=== PATIENT | female | born 1990 | race Hispanic/Latino ===

== ENCOUNTER 2025-05-30 11:23 | Emergency (ER) | payer OTHER, SELFPAY ==
--- NOTE | ~2025-05-30 | US_ITS ---
EXAMINATION: US pelvic complete w TV DATE: 05/30/2025 15:06 INDICATION: Bilateral hydrosalpinx on CT. Hematuria and dysuria. TECHNIQUE: Multiple transabdominal and endovaginal sonographic images of the pelvis were obtained. COMPARISON: None. FINDINGS: The anteverted uterus measures 10.4 x 5.3 x 6.0 cm. There several anechoic nabothian cysts measuring up to 9 mm at the cervix. The endometrial complex measures 15 mm in thickness. There is subtle heterogeneously echogenicity to the myometrium at the uterine fundus with striated pattern of suspicious for diffuse adenomyosis. The right ovary measures 3.3 x 3.2 x 2.3 cm. 2.2 cm anechoic right ovarian cyst/follicle. The left ovary measures 2.8 x 2.5 x 1.8 cm. There are a few additional smaller anechoic cysts/follicles measuring up to 1.2 cm in the left ovary. There is dilation of the bilateral fallopian tubes with internal longitudinal mucosal folds with fallopian tubes measuring up to 1.5 cm diameter on the left and 1.2 cm on the right. There is normal vascular flow in the ovaries. There is no free fluid in the pelvis. IMPRESSION: 1. Bilateral hydrosalpinges. 2. Heterogeneous echogenicity with striate pattern of the uterine myometrium suspicious for diffuse adenomyosis. Reviewed, dictated and finalized at location A. CIATE PROFESSOR OF CHEMISTRY IMPRESSION: 1. Bilateral hydrosalpinges. 2. Heterogeneous echogenicity with striate pattern of the uterine myometrium sibley spicious for diffuse adenomyosis.
--- NOTE | ~2025-05-30 | CT_ITS ---
CT abdomen pelvis w con Clinical History: r flank pain, poss stone vs pyelo . Comparison: None Technique: Axial images lung bases to symphysis pubis IV contrast information not listed in PACS Coronal, sagittal reformats CT images acquired with automatic exposure control for dose reduction DLP: 238 mGy-cm Findings: Lung bases: Clear. Visualized heart and pericardium: Unremarkable. Liver: Unremarkable. Gallbladder: Unremarkable. Spleen: Unremarkable. Pancreas: Unremarkable. Adrenal glands: Unremarkable. Kidneys: Right kidney- No hydronephrosis. No renal stones. A few small cysts Left kidney- No hydronephrosis. No renal stones. Distal esophagus/stomach: Unremarkable. Small bowel loops: Normal caliber and wall thickness. Colon: Normal caliber and wall thickness. Appendectomy. Nodes: No enlarged nodes. Peritoneum: No ascites. No free air. Urinary bladder: Unremarkable. Uterus: Fluid within canal presumably perimenses. Adnexa: No masses. Bilateral tubular cystic focus. Bones: No acute bony abnormality. Soft tissues: Unremarkable. Aorta: No aneurysm or dissection. IVC: Unremarkable. Main portal vein/SMV/splenic vein: Patent. IMPRESSION: 1. Bilateral hydrosalpinx. Recommend transvaginal pelvic ultrasound. 2. Otherwise no acute abnormality. Reviewed, dictated and finalized at location R. ER PARENT
[2025-05-30 11:33] VITALS: BP 108/63; PULSE 73; RESP 20; TEMP 36.4; O2SAT 100
[2025-05-30 12:00] LABS: BEDSIDEPREGUCG Negative (Negative)
[2025-05-30 12:15] LABS: Add Urine Microscopic? YES; Appearance Urine Cloudy (Clear); Glucose Urine UA Negative (Negative); Leukocyte Esterase Ur 1+ LEU/UL (Negative); Nitrate Urine Negative (Negative); Non Pathogenic Casts 0-2; Specific Grav Ur 1.004 (1.001-1.035)
--- NOTE | 2025-05-30 12:21 | ED_ITS ---
HPI - Female Genitourinary General Chief complaint: Urogenital-Female Stated complaint: lower abdominal pain. blood in urine Time Seen by Provider: 05/30/25 12:03 Source: patient and associate store manager Mode of arrival: ambulatory Limitations: language barrier History of Present Illness HPI Narrative: This is a 34-year-old female with no significant past medical history presents the ED for dysuria, hematuria. Patient states that since this morning she has been having symptoms. She states that this did happen once before about 4 years ago and she was diagnosed with a kidney infection. Denies fevers, chills. She has had increased urination. Reports pain to her right flank. No prior history of kidney stones. She is not on any medications at this time. Last normal menstrual period was 05/23/2025. Related Data Allergies Allergy/AdvReac Type Severity Reaction Status Date / Time No Known Allergies Allergy Verified 05/30/25 11:37 Review of Systems 2 Review of Systems: Gen.: Denies fevers or chills Eyes: Denies eye pain or visual change ENT: Denies congestion Respiratory: Denies shortness of breath or cough CV: Denies chest pain or palpitations GI: Denies abdominal pain nausea, emesis or diarrhea as per HPI Musculoskeletal: Denies back pain or muscle pain Neuro: Denies numbness, tingling, weakness or focal weakness Skin: Denies rash Except as documented, all other systems reviewed and negative Exam 2 Narrative: APPEARANCE: No acute distress, nontoxic, resting in bed EYES: EOMI HEENT: Normocephalic, atraumatic, OMM RESPIRATORY: No respiratory distress Clear to auscultation bilaterally with no rhonchi wheezing or rales. CARDIOVASCULAR: Regular rate and rhythm without murmurs rubs or gallops. ABDOMINAL: Soft, nontender, nondistended, no rebound or guarding MUSCULOSKELETAl: Moves all extremities. No clubbing, cyanosis or edema. NEURO: Awake and alert. Following commands, speech normal, no focal deficits SKIN:: Warm, dry. No rashes lesions or abrasions PSYCHIATRIC: Normal affect/mood, Course Vital Signs Vital signs: Vital Signs Temperature 97.5 F L 05/30/25 11:33 Pulse Rate 73 05/30/25 11:33 Respiratory Rate 20 05/30/25 11:33 Blood Pressure 108/63 05/30/25 11:33 Pulse Oximetry 100 05/30/25 11:33 Oxygen Delivery Room Air 05/30/25 11:33 Temperature 97.5 F L 05/30/25 11:33 Pulse Rate 75 05/30/25 15:56 Respiratory Rate 14 05/30/25 15:56 Blood Pressure 131/76 05/30/25 15:56 Pulse Oximetry 100 05/30/25 15:56 Oxygen Delivery Room Air 05/30/25 11:33 MDM - Female Genitourinary MDM Narrative Medical decision making narrative: 34-year-old female Presenting for flank pain and hematuria. On initial evaluation patient was in no acute distress afebrile, hemodynamic stable. Differentials include but are not limited to: Ovarian torsion, ovarian cyst, ectopic , Appendicitis, constipation, IBD, IBS, ureterolithiasis, enterocolitis, colitis, hernia Notable exam findings: Right CVA tenderness, mild suprapubic tenderness to palpation. Notable lab findings: CBC and CMP without significant abnormalities. UA showed blood and leukocyte esterase but no bacteria. HCG negative. Notable imaging findings: CT abdomen/pelvis showed bilateral hydrosalpinx, recommended transvaginal ultrasound. Transvaginal ultrasound was obtained which showed hydrosalpinx with evidence of adenomyosis. This is likely the source of the patient's symptoms at this time. She does not have a junior paralegal to follow up with. She was given a referral to Dr. Ji, to follow-up for further evaluation and management. They were educated on Tylenol and ibuprofen use. Patient and family were agreeable to this plan. Given strict return precautions. Medical Records Attestation: I reviewed the patient's medical records. Lab Data Attestation: I reviewed the patient's lab results. 05/30/25 12:42 05/30/25 12:42 Labs: Lab Results 05/30/25 05/30/25 05/30/25 Range/Units 11:51 11:58 12:42 WBC 9.1 (4.5-10.0) K/mm3 RBC 3.89 L (4.2-5.4) M/mm3 Hgb 11.6 L (12.0-15.0) g/dL Hct 35.4 L (37.0-47.0) % MCV 91.0 (80-100) fl MCH 29.8 (26-34) pg MCHC 32.8 (32-36) g/dl RDW 13.3 (11.5-14.5) % Plt Count 288 (150-375) k/mm3 MPV 9.7 (7.4-10.4) fl Immature Gran % (Auto) 0.2 (0-0.5) % Neut % (Auto) 71.5 (45.5-73.1) % Lymph % (Auto) 21.4 (18.3-44.2) % [place] % (Auto) 6.3 (2.6-8.5) % Eos % (Auto) 0.4 (0-4.4) % Baso % (Auto) 0.2 (0.2-1.2) % Lymph # (Auto) 1.96 (0.9-3.2) K/mm3 [place] # (Auto) 0.6 (0.1-0.6) K/mm3 Eos # (Auto) 0.0 (0-0.3) K/mm3 Baso # (Auto) 0.0 (0.0-0.1) K/mm3 Abs Immat Gran (auto) 0.02 (0.00-0.031) K/mm3 Absolute Neuts (auto) 6.5 (1.3-6.7) K/mm3 Absolute Nucleated RBC 0.000 (0.0-0.012) K/mm3 Nucleated RBC % 0.0 (0.0-0.2) % Sodium 138 (137-145) mmol/L Potassium 3.5 (3.4-5.0) mmol/L Chloride 103 (98-107) mmol/L Carbon Dioxide 27 (22-30) mmol/L Anion Gap 8 (4-12) mmol/L BUN 8 (7-17) mg/dL Creatinine 0.52 L (0.7-1.0) mg/dL Estim Creat Clear Calc 91 ml/min Estimated GFR > 60 (59 - ) Glucose 110 (65-110) mg/dL Calcium 8.7 (8.4-10.2) mg/dL Total Bilirubin 0.7 (0.2-1.3) mg/dL AST 19 (14-36) U/L ALT 11 (6-35) U/L Alkaline Phosphatase 62 (38-126) U/L Total Protein 7.2 (6.3-8.2) g/dL Albumin 4.2 (3.5-5.1) g/dL Urine Color Yellow (Yellow) Urine Appearance Cloudy H (Clear) Urine pH 6.0 (5.0-9.0) Ur Specific [place] 1.004 (1.001-1.035) Urine Protein Negative (Negative) mg/dL Urine Glucose (UA) Negative (Negative) mg/dL Urine Ketones Negative (Negative) mg/dL Ur Blood (Man) 2+ H (Negative) Urine Nitrate Negative (Negative) Urine Bilirubin Negative (Negative) Urine Urobilinogen 0.2 (<2.0) mg/dL Leukocyte Esterase Rfl 1+ H (Negative) NORA/UL Urine RBC 0-2 (0-2) /hpf Urine WBC 11-20 H (0-3) /hpf Ur Squamous Epith Cells Occasional (Few) /hpf Urine Bacteria None seen /hpf Urine Casts 0-2 POC Urine HCG, Qual Negative (Negative) Imaging Data Attestation: I personally reviewed and interpreted this imaging study as follows: Radiologist's impression: Impressions Abdomen/Pelvis CT 05/30/25 13:30 IMPRESSION: 1. Bilateral hydrosalpinx. Recommend transvaginal pelvic ultrasound. 2. Otherwise no acute abnormality. Pelvic/Transvag US 05/30/25 15:13 IMPRESSION: 1. Bilateral hydrosalpinges. 2. Heterogeneous echogenicity with striate pattern of the uterine myometrium suspicious for diffuse adenomyosis. Discharge Plan Discharge Clinical Impression: Adenomyosis, Hydrosalpinx Patient Disposition: Home Condition: Stable Instructions: Antibiotic Form, Endometriosis (ED) Additional Instructions: Tsering ecograf?as son compatibles con endometriosis. Debe consultar con un ginec?logo. Se le curtis dado juan hafsa con el Dr. Ji. Puede dylon paracetamol e ibuprofeno para el dolor. Regrese a urgencias si presenta s?ntomas nuevos o si estos empeoran. Para el dolor, malestar o temperatura igual o superior a 38.2 ?C (100.8 ?F), alterne los siguientes dos medicamentos seg?n sea necesario. Primer medicamento: paracetamol (Tylenol) 1000 mg cada 6-8 horas seg?n sea necesario para los s?ntomas mencionados. [place] medicamento: ibuprofeno (Motrin) 600 mg cada 6-8 horas seg?n sea necesario para los s?ntomas mencionados. Patient Language: Andorran Follow-up/Referrals: PHYSICIAN,MARINE PAINTER [Primary Care Provider, Internal Medicine] Kale Ji MD [Physician, ROCK CRUSHER OPERATOR]
[2025-05-30] MEDS: KETOROLAC 30 MG/ML VIAL (*BKC) IM (12:28)
[2025-05-30 12:51] VITALS: BP 125/85; PULSE 61; RESP 16; O2SAT 100
[2025-05-30 12:53] LABS: Hematocrit 35.4 % (37.0-47.0); Hemoglobin 11.6 g/dL (12.0-15.0); Immature Granulocyte Percent A 0.2 % (0-0.5); Lymphocytes Absolute Auto 1.96 K/mm3 (0.9-3.2); Mean Corpuscular HGB Conc 32.8 g/dl (32-36); Mean Corpuscular Hemoglobin 29.8 pg (26-34); Mean Corpuscular Volume 91.0 fl (80-100); Nucleated Red Blood Cells Absolute Auto 0.000 K/mm3 (0.0-0.012); Nucleated Red Blood Cells Perc 0.0 % (0.0-0.2); Platelet Count Result 288 k/mm3 (150-375); Red Blood Count 3.89 M/mm3 (4.2-5.4); White Blood Count 9.1 K/mm3 (4.5-10.0)
--- OUTSIDE RECORDS SUMMARY | 2025-05-30 13:02 | XMS_ITS | Clinical Summary ---
Author Organization [facility] al Address [address] [place] [address] Care Team Providers Care Chief Drafter Name Role Phone Unknown, Notinfile Primary Care Provider Unavail able Allergies No known active allergies Medications acetaminophen (TYLENOL) 500 mg tablet Take 1 tablet (500 mg total) by mouth every 6 (six) hours as needed for pain 60 tablet 05/31/2022 Active Active Problems Problem Noted Date Diagnosed Date Polyp of corpus uteri 04/30/2022 Overview (04/30/2022): Added automatically from request for surgery [id number] Pelvic pain in female 04/30/2022 Overview (04/30/2022): Added automatically from request for surgery [id number] Surgical History Surgery Date Site/Laterality Comments TUBAL LIGATION 2016 - 07/27/2017 Family History Medical History Relation Name Comments Anesthesia problems Neg Hx Social History Tobacco Use Types Packs/Day Years Used Date Smoking Tobacco: Never Smokeless Tobacco: Never Tobacco Cessation:Counseling Given: Not Answered AUDIT-C Answer Date Recorded Q1: How often do you have a drink containing alc ohol? 2-4 times a month 05/17/2022 Q2: How many drinks containi ng alcohol do you have on a typical day when you are drinking? 1 or 2 05/17/2022 Q3: How often do you have si x or more drinks on one occasion? Never 05/17/2022 Comments No Sex and Gender Information Value Date Recorded Sex Assigned at Not on file Legal Sex Female 2:51 PM CDT Gender Identity Not on file Sexual Orientation Not on file Last Filed Vital Signs Vital Sign Reading Time Taken Comments Blood Pressure 115/80 05/31/2022 12:00 PM CDT Pulse 63 05/31/2022 12:10 PM CDT Temperature 36.5 C (97.7 F) 05/31/2022 11:50 AM CDT Respiratory Rate 14 05/31/2022 12:10 PM CDT Oxygen Saturation 99% 05/31/2022 12:10 PM CDT Inhaled Oxygen Concentration - - Weight 56.7 kg (125 lb) 05/17/2022 11:20 AM CDT Height 152.4 cm (5') 05/17/2022 11:20 AM CDT Body Mass Index 24.41 05/17/2022 11:20 AM CDT Plan of Treatment Health Maintenance Due Date Last Done Comments Cervical Cancer Screening 1989 Depression Screening 1989 Hepatitis C Screening 1989 DTaP/Tdap/Td Vaccine (1 - Tdap) 2000 Varicella Vaccines (1 of 2 - 13+ 2-dose series) 2002 Hepatitis B Screening 2007 Regular Well Visit/Exam 18-64 2007 HPV Vaccines (1 - 3-dose SCD M series) 2016 Influenza Vaccine (#1) 2025 Pneumococcal vaccine <65 Aged Out No longer eligible based on patient's age to complete this topic Insurance [facility] Care Teams Chief Drafter Relationship Specialty Start Date End Date Unknown, Notinfile PCP - General 05/22/22
--- OUTSIDE RECORDS SUMMARY | 2025-05-30 13:02 | XMS_ITS | Clinical Summary ---
Author Organization [facility] Address [address] [place] [address] Care Team Providers Care Speech Communication Professor Name Role Phone Unavailable Primary Care Provider Unavailabl e Source Comments [facility] [employer],non-owned Affiliates and Associated Physician Practices is amultiple site organization consisting of ambulatory clinics and hospital sitesin [place], [place], [place] and [place]. This disclosure is being madepursuant to the Care Everywhere program and may not contain all information available regarding this patient. Last updated 18.[facility] Allergies No known active allergies Medications * Be aware that medications may not be up to date on this document. Alwaysverify current medications with the patient. Vit-Fe Fumarate-FA ( VITAMIN) 28-0.8 MG tablet Take 1 Tab by mouth once daily. Active ferrous sulfate 325 (65 FE) MG tablet Take 325 mg by mouth once daily. Active ibuprofen (MOTRIN) 600 MG tablet Take 1 Tab by mouth every 6 hours as needed for Pain. 80 Tab 0 1 Active Additional Information Patient not taking.Reported on 03/19/2020 docusate sodium (COLACE) 100 MG capsule Take 1-2 Caps by mouth nightly as needed for Constipation. 60 0 1 Active Additional Information Patient not taking.Reported on 03/19/2020 Vit-Fe Fumarate-FA ( PLUS) 27-1 MG tablet Take 1 Tab by mouth once daily. 30 Tab 2 1 Active Additional Information Patient not taking.Reported on 03/19/2020 naproxen (NAPROSYN) 500 MG tablet Take 1 (one) tablet by mouth 2 times daily 20 tablet 1 Active famotidine (Pepcid) 40 MG tablet Take 1 (one) tablet by mouth once daily 30 tablet 5 Active ondansetron, disintegrating, (Zofran ODT) 4 MG tablet Take 1 (one) tablet by mouth every 6 hours as needed for Nausea/Vomiting Allow tablet to dissolve on the tongue 10 tablet 5 Active Active Problems Problem Noted Date Diagnosed Date Supervision of normal 07/19/2011 Immunizations Immunization Administration Dates Next Due TDAP (7yrs+) 07/20/2011 Social History Tobacco Use Types Packs/Day Years Used Date Smoking Tobacco: Never Smokeless Tobacco: Never Tobacco Cessation:Counseling Given: No Alcohol Use Standard Drinks/Week Comments No 0 (1 standard drink = 0.6 oz pur e alcohol) Comments No Sex and Gender Information Value Date Recorded Sex Assigned at Not on file Legal Sex Female 11:48 AM HELPDESK MANAGER Gender Identity Not on file Sexual Orientation Not on file Last Filed Vital Signs Vital Sign Reading Time Taken Comments Blood Pressure 99/57 09/04/2024 1:02 AM HELPDESK MANAGER Pulse 86 09/04/2024 1:02 AM HELPDESK MANAGER Temperature 37.1 C (98.8 F) 09/03/2024 10:13 PM HELPDESK MANAGER Respiratory Rate 16 09/04/2024 1:02 AM HELPDESK MANAGER Oxygen Saturation 99% 09/04/2024 1:02 AM HELPDESK MANAGER Inhaled Oxygen Concentration - - Weight 56.7 kg (125 lb) 03/10/2021 7:50 PM CDT Height 167.6 cm (5' 6) 03/10/2021 7:50 PM CDT Body Mass Index 20.18 03/10/2021 7:50 PM CDT Plan of Treatment Health Maintenance Due Date Last Done Comments HIV SCREENING 2004 HEPATITIS C SCREENING 07/24/2007 HEPATITIS B VACCINE (1 of 3 - 19+ 3-dose series) 2008 PAP SMEAR 2010 HPV VACCINE (1 - 3-dose SCDM series) 2016 DTAP/TDAP/TD VACCINES (2 - T d or Tdap) 07/20/2021 07/20/2011 DEPRESSION SCREENING 2024 COVID-19 VACCINE (2023-2 5 season) 2025 INFLUENZA VACCINE (#1) 2025 04/11/2011 ZOSTER VACCINE (1 of 2) 2039 HIB VACCINE Aged Out No longer eligi ble based on patient's age to complete this topic MENINGOCOCCAL (Group B) VACC INE SHARED DECISION-MAKING Aged Out No longer eligibl e based on patient's age to complete this topic MENINGOCOCCAL GROUPS A/C/Y/W VACCINE Aged Out No longer eligible b ased on patient's age to complete this topic PNEUMOCOCCAL VACCINE Aged Out No long er eligible based on patient's age to complete this topic Insurance [facility] Advance Directives * FULL RESUSCITATION (Latest Code Status on File) Date Activated Date Inactivated Comments 07/19/2011 10:55 AM 07/21/2011 2:50 AM
[2025-05-30 13:08] LABS: Alanine Aminotransferase 11 U/L (6-35); Albumin Level 4.2 g/dL (3.5-5.1); Alkaline Phosphatase 62 U/L (38-126); Anion Gap 8 mmol/L (4-12); Aspartate Amino Transferase 19 U/L (14-36); Bilirubin,Total 0.7 mg/dL (0.2-1.3); Blood Urea Nitrogen 8 mg/dL (7-17); Calcium 8.7 mg/dL (8.4-10.2); Carbon Dioxide 27 mmol/L (22-30); Chloride 103 mmol/L (98-107); Estimated CRCL calculation 91 ml/min; Estimated Glomerular Filt Rate > 60; Glucose 110 mg/dL (65-110); Potassium 3.5 mmol/L (3.4-5.0); Sodium 138 mmol/L (137-145); Total Protein 7.2 g/dL (6.3-8.2)
--- OUTSIDE RECORDS SUMMARY | 2025-05-30 13:38 | XMS_ITS | Clinical Summary ---
Author Organization [facility] Address [address] [place] [address] Care Team Providers Care Copy Clerk Name Role Phone Unavailable Primary Care Provider Unavailabl e Source Comments [facility] [employer],non-owned Affiliates and Associated Physician Practices is amultiple site organization consisting of ambulatory clinics and hospital sitesin [place], [place], [place] and [place]. This disclosure is being madepursuant to the Care Everywhere program and may not contain all information available regarding this patient. Last updated 18.[facility] [employer] Allergies No known active allergies Medications * [...] on file Legal Sex Female 11:48 AM LAB RN Gender Identity Not on file Sexual Orientation Not on file Last Filed Vital Signs Vital Sign Reading Time Taken Comments Blood Pressure 99/57 09/04/2024 1:02 AM LAB RN Pulse 86 09/04/2024 1:02 AM LAB RN Temperature 37.1 C (98.8 F) 09/03/2024 10:13 PM LAB RN Respiratory Rate 16 09/04/2024 1:02 AM LAB RN Oxygen Saturation 99% 09/04/2024 1:02 AM LAB RN Inhaled Oxygen Concentration - - Weight 56.7 [...] patient's age to complete this topic Insurance [facility] Advance Directives * FULL RESUSCITATION (Latest Code Status on File) Date Activated Date Inactivated Comments 07/19/2011 10:55 AM 07/21/2011 2:50 AM
--- OUTSIDE RECORDS SUMMARY | 2025-05-30 13:39 | XMS_ITS | Clinical Summary ---
Author Organization [facility] al Address [address] [place] [address] Care Team Providers Care Singer And Unloader Name Role Phone Unknown, Notinfile Primary Care Provider Unavail able Allergies No known active allergies Medications acetaminophen (TYLENOL) 500 mg tablet Take 1 tablet (500 mg total) by mouth every 6 (six) hours as needed for pain 60 tablet 05/31/2022 Active Active Problems Problem Noted Date Diagnosed Date Polyp of corpus uteri 04/30/2022 Overview (04/30/2022): Added automatically from request for surgery [id number] Pelvic pain in female 04/30/2022 Overview (04/30/2022): Added automatically from request for surgery [id number] Surgical History Surgery Date Site/Laterality Comments TUBAL [...] patient's age to complete this topic Insurance [facility] Care Teams Singer And Unloader Relationship Specialty Start Date End Date Unknown, Notinfile PCP - General 05/22/22
[2025-05-30 15:06] VITALS: BP 128/74; PULSE 74; RESP 15; O2SAT 100
[2025-05-30 15:56] VITALS: BP 131/76; PULSE 75; RESP 14; O2SAT 100
== END 2025-05-30 15:57 | disposition home or self-care (01) ==
PROVIDERS: Emergency Medicine; Emergency Provider Student in an Organized Health Care Education/Training Program
DX: N80.03 Adenomyosis of the uterus (principal); N70.11 Chronic salpingitis
CPT/HCPCS: 36415; 74177; 76830; 76856; 80053; 81001; 81025; 85025; 87086; 96372; 99284; J1885; Q9967